=== PATIENT | male | born 1970 | race African-American/Black ===

== ENCOUNTER 2021-05-24 22:34 | Emergency (ER) | payer OTHER | END 2021-05-24 23:12 | LOC: BURERS 22:34 | DX: I10 Essential (primary) hypertension (principal); E78.5 Hyperlipidemia, unspecified; F17.210 Nicotine dependence, cigarettes, uncomplicated; G81.90 Hemiplegia, unspecified affecting unspecified side; Z86.73 Personal history of transient ischemic attack (TIA), and cerebral infarction without residual deficits | CPT/HCPCS: 99284 ==